=== PATIENT | male | born 1945 | race Caucasian/White ===

== ENCOUNTER 2017-09-03 16:37 | Emergency (ER) | payer OTHER ==
[2017-09-03 16:51] VITALS: BP 133/85; PULSE 62; TEMP 98.1; BMI 17.6
[2017-09-03] MEDS ORDERED: LIDOCAINE HCL 1%, 10 MG/ML (20ML VIAL) ONE (17:18)
[2017-09-03] MEDS ORDERED: DIPHTH,PERTUSS(ACELL),TET 0.5 ML DISP.SYRIN IM ONE (17:23)
--- NOTE | 2017-09-03 18:05 | PDOC ---
History of Present Illness - General Chief Complaint: Injury Stated Complaint: LACERATION Time Seen by Provider: 09/03/17 17:13 History Source: Patient Exam Limitations: No Limitations - History of Present Illness Initial Comments: 09/03/17 18:00 71 yr male no pmhx cut his right middle digit on a closet door today at work. 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") - Immunization History Immunization Up to Date: Yes - Suicide/Smoking/Psychosocial Hx Smoking History: Current every day smoker Number of Cigarettes Smoked Daily: 40 Information on smoking cessation initiated: No Hx Alcohol Use: No Drug/Substance Use Hx: No Substance Use Type: None *Physical Exam - Vital Signs Last Vital Signs Temp Pulse Resp BP Pulse Ox 98.1 F 62 16 133/85 98 09/03/17 16:46 09/03/17 16:46 09/03/17 16:46 09/03/17 16:46 09/03/17 16:46 - Physical Exam General Appearance: Yes: Nourished, Appropriately Dressed HEENT: positive: EOMI, ANGELA Musculoskeletal: positive: Normal Inspection Extremity: positive: Normal Capillary Refill, Normal Range of Motion (FROM nv intact no tendon involvement ), Other (3.0cm linear avualsion laceration to the dorsal side of the middle digit longitudinal ) Integumentary: positive: Normal Color, Dry, Warm Neurologic: positive: Fully Oriented, Alert, Normal Mood/Affect, Normal Response , Motor Strength 5/5 Procedures - Laceration/Wound Repair Right Medial Finger 3rd digit Wound Length: 2.6 to 5.0 cm Wound Explored: clean Wound's Depth, Shape: linear, flap, contused tissue Irrigated w/ Saline: Yes Betadine Prep: Yes Anesthesia: 1% Lidocaine Amount of Anesthetic (ccs): 3 Wound Repaired With: Sutures (4 simple interrupted sutures ), Steri-strips Suture Size/Type: 4:0, nylon Number of Sutures: 4 Layer Closure: No Sterile Dressing Applied: Yes Splint Applied: Yes (finger) ED Treatment Course - RADIOLOGY Radiology Studies Ordered: Category Date Time Status FINGER(S) RIGHT [RAD] Stat Radiology 09/03/17 17:23 Taken - Medications Given in the ED: ED Medications Discontinued Medications Generic Name Dose Route Start Last Admin Trade Name Freq PRN Reason Stop Dose Admin Diphtheria/Tetanus/Acell Pertussis 0.5 ml 09/03/17 17:23 09/03/17 17:35 Boostrix - IM 09/03/17 17:24 0.5 ml .ONCE ONE Administration Medical Decision Making - Medical Decision Making 09/03/17 18:03 cc: finger laceration FROM nv intact will get xray to r/o fracture update tetanus pt is right hand dominant sutures placed , steri strips placed and finger splint no fracture on wet read of the xray pt to return in 48hrs for wound check and dressing change *DC/Admit/Observation/Transfer Diagnosis at time of Disposition: Laceration - Discharge Dispostion Disposition: HOME Condition at time of disposition: Good - Referrals Referrals: Dameon Lewis [Primary Care Provider] - Cliffodr Bird MD [Staff Physician] - - Patient Instructions Additional Instructions: return in 48hrs for wound check between 8am and 8pm keep the finger dry do not remove the dressing take motrin or tylenol for pain as needed follow with the hand surgeon for any concerns in function or any numbness or tingling - Post Discharge Activity
== END 2017-09-03 18:14 | disposition home or self-care (01) ==
LOC: JERFT 16:37
PROC: 3E0234Z Introduction of Serum, Toxoid and Vaccine into Muscle, Percutaneous Approach (ICD-10-PCS; principal; 2017-09-03)
PROC: 0JQJ0ZZ Repair Right Hand Subcutaneous Tissue and Fascia, Open Approach (ICD-10-PCS; 2017-09-03)
PROC: 2W3JX1Z Immobilization of Right Finger using Splint (ICD-10-PCS; 2017-09-03)
DX: S61.212A Laceration without foreign body of right middle finger without damage to nail, initial encounter (principal); W23.0XXA Caught, crushed, jammed, or pinched between moving objects, initial encounter; Y93.89 Activity, other specified; Y92.69 Other specified industrial and construction area as the place of occurrence of the external cause; Y99.0 Civilian activity done for income or pay
CPT/HCPCS: 73140-TC-RT; 90715; 99281-25

== ENCOUNTER 2017-09-05 08:23 | Emergency (ER) | payer OTHER ==
[2017-09-05 08:37] VITALS: BP 125/71; PULSE 66; TEMP 98.3; BMI 17.6
--- NOTE | 2017-09-05 09:11 | PDOC ---
Suture Removal/Wound Check HPI - History of Present Illness Chief Complaint: Revisit,Wound Recheck Stated Complaint: REVISIT, FOLLOW UP Time Seen by Provider: 09/05/17 08:53 History Source: Yes: Patient Exam Limitations: Yes: No Limitations [facility] Date of Last ED visit: 08/27/17 - Previous ED Treatment Type of procedure performed on last visit: Yes: Laceration Repair Tetanus Immunization: Yes: Up to Date - Onset of Previous Treatment Date of Occurence: 08/27/17 Past History - Past Medical History Allergies/Adverse Reactions: Allergies Allergy/AdvReac Type Severity Reaction Status Date / Time No Known Allergies Allergy Verified 09/05/17 08:34 Home Medications: Ambulatory Orders NK [No Known Home Medication] 09/03/17 COPD: No - Surgical History Abdominal Surgery: Yes ("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 Pt c/ o pain however has not taken any pain meds. denies any fever or chills. finger is in a splint with dressing intact. Current Severity Level: Mild Location of Laceration/Wound: right: Finger (middle digit ) *Review of Systems - Review of Systems Able to Perform ROS?: Yes Constitutional: No: Symptoms Reported HEENTM: No: Symptoms Reported Respiratory: No: Symptoms reported Cardiac (ROS): No: Symptoms Reported Integumentary: Yes: Symptoms Reported Procedures - Additional Procedures Progress: 09/05/17 09:14 dressing and splint removed. sutures and steri strips intact to the right middle digit. nv intact good cap refill wound redressed loosley with bandaid and blue finger splint placed Medical Decision Making - Medical Decision Making 09/05/17 09:15 cc: wound check laceration repair right finger no fever FROM of the digit nv intact will splint and redress with bandaid follow up on 09/10 for removal pt and his daughter who is translating understand the dc inst and at home care, pt is to let the wound "air dry" cover when sleeping and outside not to get wet to keep dry *DC/Admit/Observation/Transfer Diagnosis at time of Disposition: Encounter for wound re-check - Discharge Dispostion Disposition: HOME - Referrals Referrals: Dameon Lewis [Primary Care Provider] - - Patient Instructions Additional Instructions: keep clean and dry do not get wet have the wound AIR OUT when at home not using the hand, when sitting reading watching tv etc cover and splint when sleeping and if going out return on TuesdaySeptember 10 for suture removal return sooner if any concerns about healing, any drainage or redness - Post Discharge Activity
== END 2017-09-05 09:04 | disposition home or self-care (01) ==
LOC: JERFT 08:23
DX: Z09 Encounter for follow-up examination after completed treatment for conditions other than malignant neoplasm (principal)
CPT/HCPCS: 99281-25

== ENCOUNTER 2017-09-10 08:15 | Emergency (ER) | payer OTHER ==
[2017-09-10 08:29] VITALS: BP 126/72; PULSE 64; TEMP 97.4; BMI 17.6
--- NOTE | 2017-09-10 09:13 | PDOC ---
Suture Removal/Wound Check HPI - History of Present Illness Chief Complaint: Suture/Staple Removal(Here) Stated Complaint: SUTURE REMOVAL Time Seen by Provider: 09/10/17 08:46 History Source: Yes: Patient Exam Limitations: Yes: No Limitations Treated at: [facility] [place] Date of Last ED visit: 08/27/17 - Previous ED Treatment Type of procedure performed on last visit: Yes: Laceration Repair Tetanus Immunization: Yes: Up to Date Past History - Past Medical History Allergies/Adverse Reactions: Allergies Allergy/AdvReac Type Severity Reaction Status Date / Time No Known Allergies Allergy Verified 09/10/17 08:29 Home Medications: Ambulatory Orders NK [No Known Home Medication] 09/03/17 COPD: No - Surgical History Abdominal Surgery: Yes ("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") - Immunization History Immunization Up to Date: Yes - Suicide/Smoking/Psychosocial Hx Smoking History: Current every day smoker Have you smoked in the past 12 months: Yes Number of Cigarettes Smoked Daily: 40 Information on smoking cessation initiated: No 'Breaking Loose' booklet given: 09/05/17 Hx Alcohol Use: No Drug/Substance Use Hx: No Substance Use Type: None Suture Removal/Wound Check PE - Physical Exam Laceration/Wound Check Symptoms: reports: None Comments: 09/10/17 09:15 right middle finger laceration well healed CDI 6 sutures intact pt has FROM nv intact no swelling no numbness Current Severity Level: None Maximum Severity Level: None *Review of Systems - Review of Systems Able to Perform ROS?: Yes Constitutional: No: Symptoms Reported HEENTM: No: Symptoms Reported Respiratory: No: Symptoms reported, Other ABD/GI: No: Symptoms Reported : No: Symptoms Reported Musculoskeletal: No: Symptoms Reported Integumentary: Yes: Symptoms Reported Procedures - Additional Procedures Progress: 09/10/17 09:15 sutures removed CDI well healed laceration Medical Decision Making - Medical Decision Making 09/10/17 09:16 cc: suture removal from the right middle digit nv intact FROM of the digit wound is clean and dry sterile bandaid placed *DC/Admit/Observation/Transfer Diagnosis at time of Disposition: Visit for suture removal - Discharge Dispostion Disposition: HOME Condition at time of disposition: Good - Referrals Referrals: Dameon Lewis [Primary Care Provider] - - Patient Instructions Printed Discharge Instructions: DI for Suture Removal Additional Instructions: keep clean and dry let the wound air out return to ER for any concerns - Post Discharge Activity Forms/Work/School Notes: Back to Work
== END 2017-09-10 09:32 | disposition home or self-care (01) ==
LOC: JERFT 08:15
DX: Z48.02 Encounter for removal of sutures (principal)
CPT/HCPCS: 99281-25

== ENCOUNTER 2018-11-26 13:44 | Emergency (ER) | payer OTHER ==
[2018-11-26 14:05] VITALS: BP 140/71; PULSE 65; TEMP 98.6; BMI 19.0
--- NOTE | 2018-11-26 15:13 | PDOC ---
History of Present Illness - General Chief Complaint: Back Pain Stated Complaint: BACK PAINS Time Seen by Provider: 11/26/18 14:47 History Source: Patient Exam Limitations: Language Barrier - History of Present Illness Initial Comments: 11/26/18 15:09 *Family at bedside Pt is a 73yo M with PMH of BPH, lung nodules presenting to ED with complaints of lower back pain x1 week, cough and congestion. Pt does not recall any injuries. Pain is in the lower back, does not radiate, not associated with numbness/tingling, weakness in the legs. He endorses dry cough and congestion and subjective fevers at home. Denies chills, chest pain, sore throat, headache , SOB, abdominal pain, n/v/d, urinary symptoms. Family is worried that pt may have kidney infection. Pt is being set up for appointment for follow up on lung nodules PMD: [place] PMH: see hpi PSH: none Meds: tamsulosin? 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") - Immunization History Immunization Up to Date: Yes - Suicide/Smoking/Psychosocial Hx Smoking History: Current every day smoker Have you smoked in the past 12 months: Yes Number of Cigarettes Smoked Daily: 40 Information on smoking cessation initiated: No 'Breaking Loose' booklet given: 09/05/17 Hx Alcohol Use: No Drug/Substance Use Hx: No Substance Use Type: None *Physical Exam - Vital Signs Last Vital Signs Temp Pulse Resp BP Pulse Ox 98.6 F 65 18 140/71 97 11/26/18 14:03 11/26/18 14:03 11/26/18 14:03 11/26/18 14:03 11/26/18 14:03 Moderate Sedation - Procedure Monitoring Vital Signs: Procedure Monitoring Vital Signs Temperature 98.6 F 11/26/18 14:03 Pulse Rate 65 11/26/18 14:03 Respiratory Rate 18 11/26/18 14:03 Blood Pressure 140/71 02/03/19 14:03 O2 Sat by Pulse Oximetry (%) 97 11/26/18 14:03 ED Treatment Course - RADIOLOGY Radiology Studies Ordered: Category Date Time Status CHEST PA & LAT [RAD] Stat Radiology 11/26/18 15:00 Ordered Medical Decision Making - Medical Decision Making 11/26/18 15:13 *Family at bedside Pt is a 73yo M with PMH of BPH, lung nodules presenting to ED with complaints of lower back pain x1 week, cough and congestion. Pt does not recall any injuries. Pain is in the lower back, does not radiate, not associated with numbness/tingling, weakness in the legs. He endorses dry cough and congestion and subjective fevers at home. Denies chills, chest pain, sore throat, headache , SOB, abdominal pain, n/v/d, urinary symptoms. Family is worried that pt may have kidney infection. Pt is being set up for appointment for follow up on lung nodules Vitals: wnl PE: paravertebral tenderness *DC/Admit/Observation/Transfer Diagnosis at time of Disposition: Back pain Qualifiers: Back pain location: low back pain Chronicity: acute Back pain laterality: bilateral Sciatica presence: without sciatica Qualified Code(s): M54.5 - Low back pain - Discharge Dispostion Disposition: HOME Condition at time of disposition: Improved - Referrals Referrals: Jonel Bethea MD [Non Staff, Medical] - - Patient Instructions Printed Discharge Instructions: DI for Low Back Pain Additional Instructions: You were seen in the emergency room today for back pain. The xrays do not show any fractures in the spine or bone lesions. No signs of infection seen in the chest xray either. The urine did not show infection. This pain is most likely due to muscle sprain or spasms. Try not lifting anything heavy. Rest your back. You can take Tylenol for the pain. Make sure you keep seeing Dr. Bethea. Come back to the emergency room if pain gets worse, you have weakness in your legs, you have numbness in your legs, if you are unable to walk, you develop fever, or if any new concerning symptom develops. Thank you - Post Discharge Activity
--- NOTE | 2018-11-26 16:19 | PDOC ---
Attending Attestation - Resident Resident Name: Tammie Thompson - ED Attending Attestation I have performed the following: I have examined & evaluated the patient, The case was reviewed & discussed with the resident, I agree w/resident's findings & plan, Exceptions are as noted - HPI HPI: 11/26/18 17:33 This patient is a 73 year old Sudanese-speaking male with PMHx of BPH, lung nodules, who is presenting to ED with complaints of lower back pain 3-4 days, dry cough and congestion. Patient reports waking up in the morning and being unable to stand up. 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 Pain is in the lower back, does not radiate, not associated with numbness/ tingling, weakness in the legs, urinary or bowel incontinence. He endorses mild dry cough and congestion and subjective fevers at home. Family is worried that pt may have kidney infection. Patient is being set up for appointment for follow up on lung nodules. Patient reports taking tylenol for the pain with little relief. Denies chills, chest pain, sore throat, headache, SOB, abdominal pain, n/v/d, urinary or bowel symptoms. He denies any numbness or tingling. 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 pt stated when pt woke up a 4-5 days ago. no associated fever/chills, n/v, urianry syptmos, stool incontinence, numbness/weakness/tingling. suspect pssible strain no red flags will treat supportively as pt has a hx of lung nodule - will obtain xray to r/o lesions tylenol for pain will have pt fu with his MPD A portion of this note was documented by scribe services under my direction. I have reviewed the details of the note, within reason, and agree with the documentation with the following case summary and management plan written by me
[2018-11-26] MEDS ORDERED: ACETAMINOPHEN 325 MG TABLET (FP) PO ONE (16:20)
[2018-11-26 16:39] LABS: URINE APPEARANCE CLEAR; URINE BILIRUBIN NEGATIVE (<2.0 mg/dL); URINE COLOR DKYELLOW; URINE GLUCOSE (UA) NEGATIVE (NEGATIVE); URINE KETONE NEGATIVE (NEGATIVE); URINE LEUK ESTERASE NEGATIVE (NEGATIVE); URINE NITRITE NEGATIVE (NEGATIVE); URINE PROTEIN NEGATIVE (NEGATIVE)
[2018-11-26] MEDS ORDERED: ACETAMINOPHEN 325 MG TABLET (FP) ONE (16:48)
== END 2018-11-26 18:47 | disposition home or self-care (01) ==
LOC: JER 13:44
DX: M54.5 Low back pain (principal); N40.0 Benign prostatic hyperplasia without lower urinary tract symptoms; R91.8 Other nonspecific abnormal finding of lung field; Z85.038 Personal history of other malignant neoplasm of large intestine; F17.210 Nicotine dependence, cigarettes, uncomplicated
CPT/HCPCS: 71046-TC-FY; 72100-TC-FY; 81003; 99282-25

== ENCOUNTER 2021-08-05 14:26 | Emergency (ER) | payer OTHER ==
[2021-08-05 14:55] VITALS: BP 97/63; PULSE 68; TEMP 97.9; BMI 24.7
== END 2021-08-05 16:14 | disposition home or self-care (01) ==
LOC: JER 14:26
DX: H60.502 Unspecified acute noninfective otitis externa, left ear (principal)
CPT/HCPCS: 99281-25